=== PATIENT | male | born 2000 | race African-American/Black ===

== ENCOUNTER 2022-02-04 11:07 | Emergency (ER) | payer MEDICAID ==
[~2022-02-04] VITALS: Ht 175.3 cm; Wt 91.0 kg
[2022-02-04 11:25] VITALS: BP 133/70
[2022-02-04 12:47] LABS: BASOPHILS % 0.2 % (0.0-2.0); EOSINOPHILS % 0.8 % (0.0-5.0); HEMOGLOBIN. 14.5 g/dL (14.0-18.0); LYMPHOCYTES % 10.4 % (20.0-50.0); MEAN CORPUSCULAR HEMOGLOBIN 25.7 pg (28.0-32.0); MEAN CORPUSCULAR VOLUME 78.2 fL (80.0-94.0); MEAN PLATELET VOLUME 9.1 fl (7.4-10.4); MONOCYTES % 9.9 % (2.0-8.0); NEUTROPHILS % 78.7 % (40.0-76.0); PLATELET 262 x1000/uL (130-400); RED BLOOD CELL COUNT 5.62 mill/uL (4.7-6.1)
[2022-02-04 12:59] LABS: CHLORIDE 104 mEq/L (98-107)
[2022-02-04 13:09] LABS: ETHANOL BLOOD < 10 mg/dL
== END 2022-02-04 17:21 | disposition left against medical advice (07) ==
LOC: ER 12:20
DX: Z53.21 Procedure and treatment not carried out due to patient leaving prior to being seen by health care provider (principal)
CPT/HCPCS: 36415; 80053; 80320; 85025; 99283; G0480

== ENCOUNTER 2023-09-16 06:21 | Emergency (ER) | payer MEDICAID ==
[~2023-09-16] VITALS: Ht 175.3 cm; Wt 90.0 kg
[2023-09-16 06:28] VITALS: O2SAT 100
[2023-09-16] MEDS ORDERED: HALOPERIDOL LACTATE 5MG/ML VIAL IM ONE (07:00)
[2023-09-16] MEDS ORDERED: LORAZEPAM 2MG/ML CPJ IM ONE (07:00)
[2023-09-16 07:30] LABS: ALANINE AMINOTRANSFERASE 25 IU/L (10-49); ALBUMIN 4.4 g/dL (3.2-4.8); ASPARTATE AMINOTRANSFERASE 20 IU/L (<34); BILIRUBIN TOTAL 0.3 mg/dL (0.1-1.0); CALCIUM 9.5 mg/dL (8.7-10.4); CARBON DIOXIDE 27 mEq/L (21-32); CHLORIDE 104 mEq/L (98-107); GLUCOSE 140 mg/dL (70-105); POTASSIUM 3.6 mEq/L (3.5-5.1); PROTEIN TOTAL 7.8 g/dL (6.0-8.3); SODIUM 139 mEq/L (136-145); UREA NITROGEN BLOOD 9 mg/dL (9-23)
[2023-09-16 07:42] LABS: BASOPHILS % 0.6 % (0.0-2.0); EOSINOPHILS % 0.8 % (0.0-5.0); HEMATOCRIT. 45.3 % (42.0-52.0); HEMOGLOBIN. 14.2 g/dL (14.0-18.0); MEAN CORPUSCULAR HEMOGLOBIN 25.4 pg (28.0-32.0); MEAN CORPUSCULAR HGB CONC 31.4 g/dL (31.0-37.0); MEAN CORPUSCULAR VOLUME 80.8 fL (80.0-94.0); MEAN PLATELET VOLUME 9.5 fl (7.4-10.4); MONOCYTES % 7.2 % (2.0-8.0); NEUTROPHILS % 73.4 % (40.0-76.0); PLATELET 272 x1000/uL (130-400); RED BLOOD CELL COUNT 5.61 mill/uL (4.7-6.1); RED CELL DISTRIBUTION WIDTH 14.6 % (11.6-14.6)
[2023-09-16 07:49] LABS: ETHANOL BLOOD < 10 mg/dL (<10)
[2023-09-16 10:34] VITALS: TEMP 98.1
[2023-09-16 12:56] VITALS: BP 110/58; PULSE 69; RESP 18
== END 2023-09-16 12:57 | disposition home or self-care (01) ==
LOC: ER 06:32
DX: T40.711A Poisoning by cannabis, accidental (unintentional), initial encounter (principal); J45.909 Unspecified asthma, uncomplicated; Y92.89 Other specified places as the place of occurrence of the external cause
CPT/HCPCS: 36415; 80053; 80320; 85025; 99291; G0480

== ENCOUNTER 2025-08-15 22:27 | Emergency (ER) | payer MEDICAID ==
[~2025-08-15] VITALS: Ht 177.8 cm; Wt 103.0 kg
[2025-08-15 22:30] VITALS: O2SAT 100
[2025-08-15 22:50] VITALS: BP 132/69; PULSE 67; RESP 16; TEMP 36.8; O2SAT 96
[2025-08-16] MEDS ORDERED: CEPH500C2 MT
[2025-08-16] MEDS ORDERED: IBUP-1455 MT
== END 2025-08-16 00:05 | disposition home or self-care (01) ==
LOC: ER 22:27
DX: L03.114 Cellulitis of left upper limb (principal); L03.113 Cellulitis of right upper limb
CPT/HCPCS: 99283